=== PATIENT | female | born 1980 | race Asian ===

== ENCOUNTER 2022-04-01 14:20 | Outpatient (CLI) | payer BC ==
[2022-04-01 14:33] LABS: HCT - HEMATOCRIT 40.8 % (37.0-47.0); HGB - HEMOGLOBIN 13.2 g/dL (12.0-16.0); MEAN CORPUSCULAR HGB CONC 32.4 g/dL (32.0-36.0); MEAN CORPUSCULAR VOLUME 89.7 fL (81.0-99.0); MEAN PLATELET VOLUME 11.1 fL (7.9-10.8); RED BLOOD COUNT 4.55 10^6/uL (4.20-5.40); RED CELL DISTRIBUTION WIDTH 11.9 % (12.0-15.0); WHITE BLOOD COUNT 4.7 x10^3/uL (4.8-10.8)
== END 2022-04-01 14:21 | disposition home or self-care (01) ==
LOC: LAB 14:20
PROVIDERS: ATTEND Obstetrics & Gynecology
DX: N92.0 Excessive and frequent menstruation with regular cycle (principal)
CPT/HCPCS: 36415; 85027

== ENCOUNTER 2022-06-02 16:53 | Outpatient (CLI) | payer BC ==
--- NOTE | 2022-06-03 11:06 | XRAY Report ---
PROCEDURE: Foot 2 View RT INDICATIONS: PLANTAR FASCIITIS OF RIGHT FOOT TECHNIQUE: 2 views of the foot were acquired. COMPARISON: None FINDINGS: Bones: No fractures or dislocations. No suspicious bony lesions. Soft tissues: No tibiotalar joint effusion. Achilles tendon appears normal. IMPRESSION: No gross soft tissue abnormality is seen in plantar right foot. No enthesophyte formation is seen. No right foot fracture or dislocation. Reviewed by: Philip Sanders MD on 06/03/2022 11:05 AM [facility] [[email or web address]] Approved by: Philip Sanders MD on 06/03/2022 11:05 AM PST Station ID: [id number]
== END 2022-06-02 16:54 | disposition home or self-care (01) ==
LOC: DI 16:53
PROVIDERS: ATTEND Physician Assistant
DX: M72.2 Plantar fascial fibromatosis (principal)

== ENCOUNTER 2022-10-21 09:08 | Outpatient (CLI) | payer BC ==
[2022-10-21 11:48] LABS: BASOPHILS % (AUTO) 0.7 %; EOSINOPHILS # (AUTO) 0.1 10^3/uL (0.0-0.7); EOSINOPHILS % (AUTO) 1.7 %; HGB - HEMOGLOBIN 12.8 g/dL (12.0-16.0); LYMPHOCYTES # (AUTO) 1.4 10^3/uL (1.5-3.5); LYMPHOCYTES % (AUTO) 26.2 %; MEAN CORPUSCULAR HEMOGLOBIN 29.3 pg (27.0-31.0); MEAN CORPUSCULAR HGB CONC 32.8 g/dL (32.0-36.0); MEAN CORPUSCULAR VOLUME 89.2 fL (81.0-99.0); MEAN PLATELET VOLUME 11.7 fL (7.9-10.8); MONOCYTES # (AUTO) 0.3 10^3/uL (0.0-1.0); MONOCYTES % (AUTO) 5.7 %; NEUTROPHILS # (AUTO) 3.6 10^3/uL (1.5-6.6); NEUTROPHILS % (AUTO) 65.5 %; PLT - PLATELET COUNT 265 10^3/uL (130-450); RED BLOOD COUNT 4.37 10^6/uL (4.20-5.40); RED CELL DISTRIBUTION WIDTH 11.9 % (12.0-15.0); WHITE BLOOD COUNT 5.4 x10^3/uL (4.8-10.8)
[2022-10-21 12:11] LABS: THYROID STIMULATING HORMONE 0.88 uIU/mL (0.34-5.60)
[2022-10-21 14:11] LABS: ALBUMIN/GLOBULIN RATIO 1.1 (1.0-2.2); BILIRUBIN,TOTAL 0.5 mg/dL (0.2-1.0); CALCIUM 9.3 mg/dL (8.5-10.3); CREATININE 0.8 mg/dL (0.4-1.0); POTASSIUM 3.8 mmol/L (3.5-5.0); TOTAL PROTEIN 7.7 g/dL (6.7-8.2)
[2022-10-21 14:17] LABS: CHOL/HDL RATIO 2.8 (<4.4); CHOLESTEROL 229 mg/dL; HDL CHOLESTEROL 83 mg/dL; LDL CHOLESTEROL,CALCULATED 112 mg/dL; LDL/HDL RATIO 1.3 (<4.4); TRIGLYCERIDES 172 mg/dL; VLDL CHOLESTEROL 34 mg/dL
== END 2022-10-21 09:09 | disposition home or self-care (01) ==
LOC: LAB.N 09:08
PROVIDERS: ATTEND Physician Assistant
DX: R51.9 Headache, unspecified (principal); Z13.9 Encounter for screening, unspecified
CPT/HCPCS: 36415; 80053; 80061; 83721; 84443; 85025; 85651; 86140

== ENCOUNTER 2023-02-05 14:53 | Outpatient (CLI) | payer BC ==
--- NOTE | 2023-02-05 20:43 | Ultrasound Report ---
PROCEDURE: Pelvic w/Transvaginal INDICATIONS: INTRAMURAL LEIOMYOMA OF UTERUS TECHNIQUE: Transabdominal/transvaginal ultrasound of the pelvis was obtained. Endovaginal scanning wa s necessary due to incomplete visualization of the adnexal and endometrial structures by transabdomin al scanning. COMPARISON: None. FINDINGS: Uterine size: Uterus measures 13.4 x 9.6 x 11.4 cm, Myometrium: The myometrium is heterogenous. Large fibroids noted. Right anterior subserosal fibroid measures 7.4 x 5.5 x 7.0 cm. Midline submucosal fibroid measures 4.3 x 4.3 x 4.2 cm. The left anteri or subserosal fibroid measures 6.1 x 4.7 x 5.3 cm. Endometrium: The endometrium measures 8 mm in combined thickness. Right ovary: Nonvisualized Left ovary: Nonvisualized Other: No pathologic free abdominal or pelvic fluid. IMPRESSION: Large uterine fibroids. Nonvisualized ovaries Reviewed by: Wilber Marcus MD on 02/05/2023 7:41 PM [facility] Approved by: Wilber Marcus MD on 02/05/2023 7:41 PM [facility] Station ID: [id number]
== END 2023-02-05 14:54 | disposition home or self-care (01) ==
LOC: DI 14:53
PROVIDERS: ATTEND Obstetrics & Gynecology
DX: D25.2 Subserosal leiomyoma of uterus (principal); D25.0 Submucous leiomyoma of uterus

== ENCOUNTER 2023-03-31 10:57 | Outpatient (CLI) | payer BC ==
--- NOTE | 2023-03-31 16:04 | CT Report ---
PROCEDURE: ABDOMEN/PELVIS W INDICATIONS: ABD AND PELVIC PAIN CONTRAST: 100ml omni 300 TECHNIQUE: After the administration of oral and intravenous contrast, 5 mm thick sections acquired from the diap hragms to the symphysis. 5 mm thick coronal and sagittal reformats were acquired. For radiation dos e reduction, the following was used: automated exposure control, adjustment of mA and/or kV accordin g to patient size. COMPARISON: Pelvic ultrasound 02/05/2023 FINDINGS: Image quality: Excellent. Lung bases and heart: Unremarkable. Liver: No solid mass. Gallbladder and biliary tree: No radiopaque stones or wall thickening. No biliary dilation. Spleen: No splenomegaly. Pancreas: No pancreatic ductal dilation. Adrenals: No adrenal nodule. Kidneys and ureters: No hydronephrosis. No renal cystic lesion which requires follow up. No solid mas s. Bowel and peritoneum: No bowel distension. No pathologic free fluid. Normal appendix. Lymph nodes: No central or retroperitoneal adenopathy. Vessels: No infrarenal aortic aneurysm. PELVIS Reproductive organs: Enlarged multi fibroid uterus with the largest fibroid measuring approximately 1 1.2 x 9.6 x 8.9 cm.. Bladder: No abnormal wall thickening, accounting for underdistension. Pelvic lymph nodes: No pelvic adenopathy by size criteria. Bones: No aggressive osseous abnormality. Other: No significant ventral or inguinal hernia. IMPRESSION: 1.Enlarged multi fibroid uterus which may be the source of patient's pelvic pain. 2.No acute intra-abdominal abnormalities. Reviewed by: Guillermo Byrd MD on 03/31/2023 2:53 PM PDT Approved by: Guillermo Byrd MD on 03/31/2023 2:53 PM PDT Station ID: [id number]
== END 2023-03-31 10:58 | disposition home or self-care (01) ==
LOC: DI 10:57
PROVIDERS: ATTEND Physician Assistant
DX: D25.9 Leiomyoma of uterus, unspecified (principal)

== ENCOUNTER 2023-09-14 10:24 | Outpatient (CLI) | payer BC ==
[2023-09-14 10:35] LABS: BASOPHILS % (AUTO) 0.4 %; EOSINOPHILS % (AUTO) 0.4 %; HCT - HEMATOCRIT 41.8 % (37.0-47.0); HGB - HEMOGLOBIN 13.6 g/dL (12.0-16.0); LYMPHOCYTES # (AUTO) 1.8 10^3/uL (1.5-3.5); LYMPHOCYTES % (AUTO) 24.3 %; MEAN CORPUSCULAR HEMOGLOBIN 29.2 pg (27.0-31.0); MEAN CORPUSCULAR HGB CONC 32.5 g/dL (32.0-36.0); MEAN CORPUSCULAR VOLUME 89.7 fL (81.0-99.0); MEAN PLATELET VOLUME 10.7 fL (7.9-10.8); MONOCYTES # (AUTO) 0.4 10^3/uL (0.0-1.0); MONOCYTES % (AUTO) 6.1 %; NEUTROPHILS % (AUTO) 68.7 %; PLT - PLATELET COUNT 350 10^3/uL (130-450); RED BLOOD COUNT 4.66 10^6/uL (4.20-5.40); RED CELL DISTRIBUTION WIDTH 11.9 % (12.0-15.0); WHITE BLOOD COUNT 7.3 x10^3/uL (4.8-10.8)
[2023-09-14 10:50] LABS: ALBUMIN 4.4 g/dL (3.2-5.5); ALBUMIN/GLOBULIN RATIO 1.2 (1.0-2.2); ALKALINE PHOSPHATASE 47 IU/L (42-121); ALT ALANINE AMINOTRANSFERASE 12 IU/L (10-60); AST ASPARTATE AMINOTRANSFERASE 14 IU/L (10-42); BILIRUBIN,TOTAL 0.4 mg/dL (0.2-1.0); BUN - BLOOD UREA NITROGEN 11 mg/dL (6-20); CALCIUM 10.1 mg/dL (8.5-10.3); CARBON DIOXIDE - CO2 27 mmol/L (21-32); CHLORIDE 101 mmol/L (101-111); CHOL/HDL RATIO 2.6 (<4.4); CHOLESTEROL 266 mg/dL; CREATININE 0.8 mg/dL (0.6-1.3); GFR - MDRD 78 (>89); GLUCOSE 97 mg/dL (74-104); HDL CHOLESTEROL 104 mg/dL; LDL CHOLESTEROL,CALCULATED 125 mg/dL; LDL/HDL RATIO 1.2 (<4.4); POTASSIUM 3.6 mmol/L (3.5-4.5); SODIUM 135 mmol/L (135-145); TOTAL PROTEIN 8.1 g/dL (6.4-8.9); TRIGLYCERIDES 187 mg/dL (48-352); VLDL CHOLESTEROL 37 mg/dL
[2023-09-14 11:03] LABS: THYROID STIMULATING HORMONE 1.21 uIU/mL (0.34-5.60)
== END 2023-09-14 10:25 | disposition home or self-care (01) ==
LOC: LAB 10:24
PROVIDERS: ATTEND Physician Assistant
DX: Z13.9 Encounter for screening, unspecified (principal); E78.5 Hyperlipidemia, unspecified
CPT/HCPCS: 36415; 80053; 80061; 83721; 84443; 85025

== ENCOUNTER 2024-01-26 14:32 | Outpatient (CLI) | payer BC ==
--- NOTE | 2024-01-30 08:10 | Mammography Report ---
BILATERAL DIGITAL SCREENING MAMMOGRAM 3D/2D WITH EXAGGERATED CC: 01/26/2024 CLINICAL: Baseline exam. Routine screening. No prior exams were available for comparison. Both breasts are extremely dense, which lowers the sensitivity of mammography (category d />75% gland ular tissue). No significant masses, calcifications, or other findings are seen in either breast. IMPRESSION: NEGATIVE There is no mammographic evidence of malignancy. A 1 year screening mammogram is recommended. Based on Tyrer-Cuzick model (a risk assessment model), the patient's lifetime risk is 22.4% and her 1 0 year risk is 3.8%. If a patient has an elevated risk, a more comprehensive evaluation should be con sidered and/or a referral to a genetic counselor. The [employer], [employer], and NCCN Guidelines advise the consideration of Breast MRI as an adjunct to screening mammog malcolm in patients whose "Lifetime risk to develop breast cancer" is 20% or higher. This exam was interpreted at Station ID: [id number]. NOTE: For mammograms, a report in lay terms will be sent to the patient. Approximately 15% of breast malignancies will not be visualized mammographically. In the management of a palpable breast mass, a negative mammogram must not discourage biopsy of a clinically suspicious lesion. Electronically Signed By: Pastora mosley/ary:01/26/2024 17:12:18 letter sent: No_Letter ACR BI-RADS Category 1: Negative 3341F PARENCHYMAL PATTERN: (VD) - The breast(s) demonstrate(s) extremely dense parenchyma, limiting the sen sitivity of mammography. BI-RADS CATEGORY: (1) - 1 RECOMMENDATION: (ANNUAL) - Recommend routine annual screening mammography. [id number] 1 year screening LATERALITY: (B)
== END 2024-01-26 14:33 | disposition home or self-care (01) ==
LOC: DI 14:32
DX: Z12.31 Encounter for screening mammogram for malignant neoplasm of breast (principal); R92.30 Dense breasts, unspecified

== ENCOUNTER 2024-02-09 10:15 | Outpatient (CLI) | payer BC ==
--- NOTE | 2024-02-09 15:39 | XRAY Report ---
PROCEDURE: Finger(s) RT INDICATIONS: UNSPECIFIED SPRAIN OF RIGHT MIDDLE FINGER TECHNIQUE: AP hand, 2 views of the third finger(s) acquired. COMPARISON: None. FINDINGS: Bones: No fractures or dislocations. Normal alignment. Joint spaces are maintained. No suspicious [place] lesions. Soft tissues: No suspicious soft tissue calcifications or masses. IMPRESSION: No acute bony abnormality. If pain persists with conservative management, consider repeat radiographs in 10-14 days or cross-sectional imaging. Reviewed by: Mandeep Hayden MD on 02/09/2024 3:38 PM PDT Approved by: Mandeep Hayden MD on 02/09/2024 3:38 PM PDT Station ID: [id number]
== END 2024-02-09 10:30 | disposition home or self-care (01) ==
LOC: DI.N 10:15
PROVIDERS: ATTEND Family Medicine
DX: S63.612A Unspecified sprain of right middle finger, initial encounter (principal)